=== PATIENT | female | born 1965 | race Caucasian/White ===

== ENCOUNTER → 2020-09-01 | Outpatient (CLI) | payer BC, OTHER ==
[~2020-09-01] MED LIST: HYDROCODON-ACE1 EAC2 PO; HYDROCODONE-AC1 EAC1 PO; IBUPROFEN600 MG PO; NEXIUM20 MG PO; PROTONIX40 MG PO
== END | disposition home or self-care (01) ==
LOC: US 08-25 11:00
DX: C15.9 Malignant neoplasm of esophagus, unspecified (principal); E04.1 Nontoxic single thyroid nodule
CPT/HCPCS: 76536

== ENCOUNTER → 2020-09-14 | Day surgery (SDC) | payer BC, OTHER | END | disposition home or self-care (01) | LOC: OR 06:57 | DX: C15.5 Malignant neoplasm of lower third of esophagus (principal); I10 Essential (primary) hypertension; F17.210 Nicotine dependence, cigarettes, uncomplicated; Z20.822 Contact with and (suspected) exposure to COVID-19; Z88.2 Allergy status to sulfonamides; Z88.8 Allergy status to other drugs, medicaments and biological substances; Z79.899 Other long term (current) drug therapy | CPT/HCPCS: 71045; 77001; C1769; C1788; J0690; J1170; J1642; J2001; J2250; J2405; J2704; J3010; J7040; J7120 ==

== ENCOUNTER 2020-11-22 21:25 | Emergency (ER) | payer BC, OTHER ==
[2020-11-22 22:01] LABS: HEMOGLOBIN 11.9 gm/dl (12.3-15.3); RED BLOOD COUNT 4.12 M/UL (4.00-5.10); WHITE BLOOD COUNT 1.7 K/UL (4.5-11.0)
[2020-11-22 22:28] LABS: BUN/CREATININE RATIO 15 (0-10)
== END 2020-11-23 00:45 | disposition home or self-care (01) ==
LOC: ER1 21:25
PROVIDERS: Physician Assistant
DX: C15.9 Malignant neoplasm of esophagus, unspecified (principal); C16.9 Malignant neoplasm of stomach, unspecified; Z88.1 Allergy status to other antibiotic agents; Z87.891 Personal history of nicotine dependence
CPT/HCPCS: 71045; 80053; 81001; 82550; 82553; 83690; 83874; 84484; 85025; 87086; 93005; 96374; 99284; J1642; J2405

== ENCOUNTER → 2021-01-25 | Outpatient (CLI) | payer BC, OTHER | LOC: US 09:03 | DX: E04.1 Nontoxic single thyroid nodule (principal); C15.9 Malignant neoplasm of esophagus, unspecified ==

== ENCOUNTER → 2021-04-27 | Outpatient (CLI) | payer BC | LOC: HEART 5 08:00 → NM 05-07 08:00 → CT 05-17 08:00 | DX: C15.9 Malignant neoplasm of esophagus, unspecified (principal); R11.2 Nausea with vomiting, unspecified ==

== ENCOUNTER → 2021-04-30 | Outpatient (CLI) | payer BC ==
[2021-04-30 12:59] LABS: RED BLOOD COUNT 4.61 M/UL (4.00-5.10)
[2021-04-30 13:20] LABS: BUN/CREATININE RATIO 10 (0-10)
== END ==
LOC: CT 11:49
PROVIDERS: Internal Medicine Hematology & Oncology
DX: C15.9 Malignant neoplasm of esophagus, unspecified (principal); R11.2 Nausea with vomiting, unspecified; R13.19 Other dysphagia
CPT/HCPCS: 36415; 71260; 80053; 85027; Q9965

== ENCOUNTER → 2021-10-01 | Outpatient (CLI) | payer OTHER ==
[2021-10-01 09:32] LABS: RED BLOOD COUNT 4.18 M/UL (4.00-5.10); WHITE BLOOD COUNT 6.1 K/UL (4.5-11.0)
[2021-10-01 09:51] LABS: BUN/CREATININE RATIO 12 (0-10)
== END ==
LOC: CT 08:58
PROVIDERS: Internal Medicine Hematology & Oncology
DX: C15.9 Malignant neoplasm of esophagus, unspecified (principal); R13.19 Other dysphagia; R11.2 Nausea with vomiting, unspecified; R18.8 Other ascites; C80.0 Disseminated malignant neoplasm, unspecified
CPT/HCPCS: 36415; 71260; 80053; 85025; Q9967

== ENCOUNTER → 2021-12-29 | Outpatient (CLI) | payer OTHER ==
[2021-12-29 13:20] LABS: HEMOGLOBIN 11.5 gm/dl (12.3-15.3); RED BLOOD COUNT 3.35 M/UL (4.00-5.10); WHITE BLOOD COUNT 3.7 K/UL (4.5-11.0)
[2021-12-29 13:39] LABS: BUN/CREATININE RATIO 8 (0-10)
== END ==
LOC: CT 12:45
PROVIDERS: Internal Medicine Hematology & Oncology
DX: C15.9 Malignant neoplasm of esophagus, unspecified (principal); R13.19 Other dysphagia; R11.2 Nausea with vomiting, unspecified; K66.9 Disorder of peritoneum, unspecified
CPT/HCPCS: 36415; 71260; 80053; 84439; 84443; 85025; Q9967

== ENCOUNTER → 2022-03-28 | Outpatient (CLI) | payer OTHER ==
[2022-03-28 09:12] LABS: HEMOGLOBIN 12.4 gm/dl (12.3-15.3); RED BLOOD COUNT 3.71 M/UL (4.00-5.10); WHITE BLOOD COUNT 13.8 K/UL (4.5-11.0)
[2022-03-28 09:49] LABS: BUN/CREATININE RATIO 14 (0-10)
== END ==
LOC: CT 08:46
PROVIDERS: Internal Medicine Hematology & Oncology
DX: C15.9 Malignant neoplasm of esophagus, unspecified (principal); R13.19 Other dysphagia; R11.2 Nausea with vomiting, unspecified
CPT/HCPCS: 36415; 71260; 80053; 84443; 85025; Q9967

== ENCOUNTER → 2022-04-14 | Outpatient (CLI) | payer OTHER | LOC: KOH-I 14:19 | DX: C15.9 Malignant neoplasm of esophagus, unspecified (principal); R13.19 Other dysphagia; R11.2 Nausea with vomiting, unspecified | CPT/HCPCS: 76856 ==

== ENCOUNTER → 2022-04-27 | Outpatient (CLI) | payer OTHER | LOC: MAMO 08:00 | DX: Z12.31 Encounter for screening mammogram for malignant neoplasm of breast (principal) | CPT/HCPCS: 77063; 77067 ==

== ENCOUNTER → 2022-05-02 | Outpatient (CLI) | payer OTHER | LOC: LAB 13:42 | DX: Z20.822 Contact with and (suspected) exposure to COVID-19 (principal) | CPT/HCPCS: U0002 ==